=== PATIENT | female | born 1970 | race Caucasian/White ===

== ENCOUNTER 2018-10-15 17:56 | Emergency (ER) | payer OTHER ==
[~2018-10-15] VITALS: Ht 157.5 cm; Wt 58.3 kg
[~2018-10-15 17:56] MED LIST: ACET325T14 PO; ASPI-496 PO; BENZ-17 PO; CHOL400C PO; LEVO750T26 PO; OSEL75CA26 PO; PARO12.518 PO; [UNRECOGNIZED DRUG - CODE] PO
[2018-10-15 20:05] LABS: BASOPHILS # (AUTO) 0.02 x10^3/uL (0-0.1); BASOPHILS % (AUTO) 0 % (0-1); EOSINOPHILS # (AUTO) 0.37 x10^3/uL (0-0.4); EOSINOPHILS % (AUTO) 4 % (1-7); LYMPHOCYTES # (AUTO) 3.47 x10^3/uL (1-3.4); LYMPHOCYTES % (AUTO) 37 % (22-44); MD NO; MEAN CORPUSCULAR HEMOGLOBIN 30.2 pg (27.0-34.8); MEAN CORPUSCULAR VOLUME 91.4 fL (80-100); MEAN PLATELET VOLUME 9.8 fL (7.4-10.4); MONOCYTES # (AUTO) 0.92 x10^3/uL (0.2-0.8); MONOCYTES % (AUTO) 10 % (2-9); NEUTROPHILS # (AUTO) 4.66 x10^3/uL (1.8-6.8); NEUTROPHILS % (AUTO) 49 % (42-75); PLATELET COUNT 231 x10^3/uL (130-400); RED BLOOD COUNT 4.52 x10^6/uL (3.82-5.3); RED CELL DISTRIBUTION WIDTH 13.7 % (9.6-15.2)
[2018-10-15 20:13] LABS: ALANINE AMINOTRANSFERASE 26 U/L (12-78); ANION GAP 5 mmol/L (5-15); CALCIUM 8.7 mg/dL (8.5-10.1); CHLORIDE 110 mmol/L (98-107); CREATININE 0.44 mg/dL (0.55-1.02)
[2018-10-15 20:16] LABS: ALKALINE PHOSPHATASE 143 U/L (45-117); BILIRUBIN,TOTAL 0.7 mg/dL (0.2-1.0); TOTAL PROTEIN 7.1 g/dL (6.4-8.2)
[2018-10-15] MEDS ORDERED: MORPHINE SULFATE 4 MG/ML, 1ML IVPush PRN (20:30)
[2018-10-15] MEDS ORDERED: ONDANSETRON 2MG/ML, 2ML IVPush ONE (20:30)
[2018-10-15] MEDS ORDERED: ONDANSETRON 2MG/ML, 2ML ONE (20:38)
[2018-10-15] MEDS ORDERED: MORPHINE SULFATE 4 MG/ML, 1ML ONE (20:38)
[2018-10-15 20:42] LABS: HCG UR SG 1.018 (1.003-1.030); MICROSCOPIC NOT IND
[2018-10-15 20:45] LABS: CULTURE INDICATED? NO
--- NOTE | 2018-10-15 20:45 | NUR ---
Pt resting on gurney, PIV placed by tech, c/o 6/10 left upper quad abd pain w/ n/v x 2-3 days. Medicated per MD orders, placed on monitor, vitals stable, education provided to both pt and family at bedside. Waiting for results.
--- NOTE | 2018-10-15 21:10 | NUR ---
Pain improved, pt resting on gurney, denies nausea, vitals stable, family at bedside.
--- NOTE | 2018-10-15 21:40 | NUR ---
Pt in CT.
[2018-10-15] MEDS ORDERED: OMNIPAQUE 350 MG/ML, 100ML BOTTLE ONE (21:46)
[2018-10-15 22:33] VITALS: BP 114/51
--- NOTE | 2018-10-15 22:34 | NUR ---
Pt watching tv, vitals stable, states "no pain", denies nausea. Waiting for US. Family at bedside.
== END 2018-10-16 00:18 | disposition home or self-care (01) ==
LOC: ED 23:27
DX: N83.202 Unspecified ovarian cyst, left side (principal); I10 Essential (primary) hypertension; Z90.710 Acquired absence of both cervix and uterus
CPT/HCPCS: 36415; 74177; 76830; 80053; 81003; 81025; 83690; 85025; 96374; 96375; 99284; J2270; J2405; Q9967

== ENCOUNTER 2018-10-21 20:45 | Emergency (ER) | payer OTHER ==
[~2018-10-21] VITALS: Ht 157.5 cm; Wt 57.9 kg
[2018-10-21 22:37] VITALS: BP 121/61
== END 2018-10-21 22:39 | disposition home or self-care (01) ==
LOC: ED 22:28
DX: M54.42 Lumbago with sciatica, left side (principal); M46.1 Sacroiliitis, not elsewhere classified; I10 Essential (primary) hypertension; Z90.710 Acquired absence of both cervix and uterus; X50.1XXA Overexertion from prolonged static or awkward postures, initial encounter; Y93.89 Activity, other specified; Y92.89 Other specified places as the place of occurrence of the external cause; Y99.8 Other external cause status
CPT/HCPCS: 72110; 73502; 76830; 99284; J7512; Q0162

== ENCOUNTER 2018-12-05 07:34 | Emergency (ER) | payer OTHER ==
[~2018-12-05] VITALS: Ht 157.5 cm; Wt 58.9 kg
[2018-12-05] MEDS ORDERED: ONDANSETRON ODT 4 MG ONE (08:13)
[2018-12-05] MEDS ORDERED: KETOROLAC 30 MG/1 ML ONE (08:13)
--- NOTE | 2018-12-05 08:22 | NUR ---
PT TO ED WITH COUGH/COLD/CP X2D. PT MEDICATED PER MAY. UA ORDERED BUT PT UNABLE TO URINATE AT THIS TIME. PA NOTIFIED. CALL LIGHT WITHIN REACH.
[2018-12-05] MEDS ORDERED: KETOROLAC 30 MG/1 ML IM ONE (08:30)
[2018-12-05] MEDS ORDERED: ONDANSETRON ODT 4 MG PO ONE (08:30)
[2018-12-05 08:42] LABS: RAPID INFLUENZA A Negative (Negative); RAPID INFLUENZA B Negative (Negative)
[2018-12-05 09:16] VITALS: BP 148/63
[2018-12-05 09:21] LABS: MICROSCOPIC INDICATED
[2018-12-05 09:35] LABS: CULTURE INDICATED? YES
== END 2018-12-05 10:08 | disposition home or self-care (01) ==
LOC: ED 08:01
DX: J06.9 Acute upper respiratory infection, unspecified (principal); R50.81 Fever presenting with conditions classified elsewhere
CPT/HCPCS: 71048; 81001; 87086; 87400; 93005; 96372; 99284; J1885; Q0162; 99283

== ENCOUNTER 2019-02-27 08:33 | Emergency (ER) | payer OTHER ==
[~2019-02-27] VITALS: Ht 157.5 cm; Wt 58.9 kg
[2019-02-27] MEDS ORDERED: KETOROLAC 30 MG/1 ML IVPush ONE (09:00)
[2019-02-27] MEDS ORDERED: METOCLOPRAMIDE 5 MG/ML, 2ML IVPush ONE (09:00)
[2019-02-27] MEDS ORDERED: DIPHENHYDRAMINE 50 MG/ML, 1ML IVPush ONE (09:00)
[2019-02-27] MEDS ORDERED: SODIUM CHLORIDE FLUSH 10ML SYR IVF ONE (09:00)
[2019-02-27] MEDS ORDERED: SODIUM CHLORIDE 0.9% 1,000ML IVBOLUS ONE (09:00)
[2019-02-27] MEDS ORDERED: DIPHENHYDRAMINE 50 MG/ML, 1ML ONE (09:10)
[2019-02-27] MEDS ORDERED: METOCLOPRAMIDE 5 MG/ML, 2ML ONE (09:10)
[2019-02-27] MEDS ORDERED: KETOROLAC 30 MG/1 ML ONE (09:11)
[2019-02-27 09:37] LABS: BASOPHILS # (AUTO) 0.03 x10^3/uL (0-0.1); BASOPHILS % (AUTO) 0 % (0-1); EOSINOPHILS # (AUTO) 0.19 x10^3/uL (0-0.4); EOSINOPHILS % (AUTO) 3 % (1-7); LYMPHOCYTES # (AUTO) 3.39 x10^3/uL (1-3.4); LYMPHOCYTES % (AUTO) 43 % (22-44); MD NO; MEAN CORPUSCULAR HEMOGLOBIN 30.5 pg (27.0-34.8); MEAN CORPUSCULAR HGB CONC 33.5 g/dL (32.4-35.8); MEAN CORPUSCULAR VOLUME 91.1 fL (80-100); MEAN PLATELET VOLUME 9.5 fL (7.4-10.4); MONOCYTES # (AUTO) 0.69 x10^3/uL (0.2-0.8); MONOCYTES % (AUTO) 9 % (2-9); NEUTROPHILS # (AUTO) 3.52 x10^3/uL (1.8-6.8); NEUTROPHILS % (AUTO) 45 % (42-75); PLATELET COUNT 235 x10^3/uL (130-400); RED CELL DISTRIBUTION WIDTH 13.4 % (9.6-15.2)
[2019-02-27 09:42] LABS: HCT (SEDRATE) 46.5 % (34.6-47.8)
[2019-02-27 09:44] VITALS: BP 126/69
--- NOTE | 2019-02-27 09:45 | NUR ---
BREAK RN NOTE: PT A&O, RESPS EVEN AND UNLABORED, NO N/V AT THIS TIME. PT REPORTS SX IMPROVED. NS BOLUS INFUSING. CALL LIGHT IN REACH, FAMILY AT BEDSIDE. AWAITING LABWORK AND DISPO AT THIS TIME.
[2019-02-27 09:48] LABS: ALANINE AMINOTRANSFERASE 55 U/L (12-78); ALBUMIN 3.3 g/dL (3.4-5.0); ANION GAP 9 mmol/L (5-15); C-REACTIVE PROTEIN, QUANT 0.61 mg/dL (0.02-0.49); CALCIUM 8.8 mg/dL (8.5-10.1); CHLORIDE 109 mmol/L (98-107); CREATININE 0.53 mg/dL (0.55-1.02)
[2019-02-27 09:50] LABS: ALKALINE PHOSPHATASE 185 U/L (45-117); BILIRUBIN,TOTAL 0.9 mg/dL (0.2-1.0); TOTAL PROTEIN 8.2 g/dL (6.4-8.2)
--- NOTE | 2019-02-27 09:50 | NUR ---
report given back to primary EMMETT Kemp.
== END 2019-02-27 10:53 | disposition home or self-care (01) ==
LOC: ED 08:57
DX: G43.909 Migraine, unspecified, not intractable, without status migrainosus (principal); R11.2 Nausea with vomiting, unspecified; I10 Essential (primary) hypertension; Z90.710 Acquired absence of both cervix and uterus
CPT/HCPCS: 36415; 80053; 85025; 85651; 86140; 93005; 96361; 96374; 96375; 99284; J1200; J1885; J2765; J7030

== ENCOUNTER 2019-05-30 00:24 | Emergency (ER) | payer OTHER ==
[~2019-05-30] VITALS: Ht 152.4 cm; Wt 60.0 kg
[2019-05-30 00:29] VITALS: BP 145/95
--- NOTE | 2019-05-30 02:26 | NUR ---
pt to room from lobby
[2019-05-30] MEDS ORDERED: KETOROLAC 60 MG/2 ML ONE (02:38)
[2019-05-30] MEDS ORDERED: OXYcodone/APAP 5/325MG TABLET ONE (02:39)
[2019-05-30] MEDS ORDERED: KETOROLAC 30 MG/1 ML IM ONE (03:00)
[2019-05-30] MEDS ORDERED: OXYcodone/APAP 5/325MG TABLET PO ONE (03:00)
== END 2019-05-30 04:08 | disposition home or self-care (01) ==
LOC: ED 04:00
DX: S83.511A Sprain of anterior cruciate ligament of right knee, initial encounter (principal); S93.491A Sprain of other ligament of right ankle, initial encounter; I10 Essential (primary) hypertension; Z90.710 Acquired absence of both cervix and uterus; X50.1XXA Overexertion from prolonged static or awkward postures, initial encounter; Y93.89 Activity, other specified; Y92.89 Other specified places as the place of occurrence of the external cause; Y99.8 Other external cause status
CPT/HCPCS: 29505; 73564; 73610; 96372; 99284; J1885

== ENCOUNTER 2019-06-18 10:27 | Emergency (ER) | payer OTHER ==
[~2019-06-18] VITALS: Ht 154.9 cm; Wt 65.0 kg
--- NOTE | 2019-06-18 10:52 | NUR ---
PT TO ED WITH C/O L SIDED ABDOMINAL AND FLANK PAIN WITH OCAASIONAL NAUSEA X2 DAYS, SORE THROAT AND COUGH X3 DAYS, ANGUIANO X6 DAYS. PT DENIES ANY OTHER C/O AT THIS TIME. PT CONNECTED TO MONITORING, CALL LIGHT WITHIN REACH. MASK ON PT.
[2019-06-18] MEDS ORDERED: KETOROLAC 30 MG/1 ML ONE (11:18)
[2019-06-18] MEDS ORDERED: SODIUM CHLORIDE FLUSH 10ML SYR IVF ONE (11:30)
[2019-06-18] MEDS ORDERED: KETOROLAC 30 MG/1 ML IVPush ONE (11:30)
[2019-06-18] MEDS ORDERED: SODIUM CHLORIDE 0.9% 1,000ML IV ONE (11:30)
[2019-06-18 11:33] LABS: MICROSCOPIC NOT IND
[2019-06-18 11:36] LABS: CULTURE INDICATED? NO
[2019-06-18] MEDS ORDERED: METH5TAB6 PO (11:37)
[2019-06-18] MEDS ORDERED: LOSA25TA12 PO (11:37)
[2019-06-18] MEDS ORDERED: METH10TA6 PO (11:37)
[2019-06-18 11:41] LABS: BASOPHILS # (AUTO) 0.04 x10^3/uL (0-0.1); BASOPHILS % (AUTO) 0 % (0-1); EOSINOPHILS # (AUTO) 0.28 x10^3/uL (0-0.4); EOSINOPHILS % (AUTO) 3 % (1-7); LYMPHOCYTES # (AUTO) 2.95 x10^3/uL (1-3.4); LYMPHOCYTES % (AUTO) 29 % (22-44); MD NO; MEAN CORPUSCULAR HEMOGLOBIN 30.8 pg (27.0-34.8); MEAN CORPUSCULAR HGB CONC 33.8 g/dL (32.4-35.8); MEAN CORPUSCULAR VOLUME 91.1 fL (80-100); MEAN PLATELET VOLUME 8.9 fL (7.4-10.4); MONOCYTES # (AUTO) 0.73 x10^3/uL (0.2-0.8); MONOCYTES % (AUTO) 7 % (2-9); NEUTROPHILS # (AUTO) 6.07 x10^3/uL (1.8-6.8); NEUTROPHILS % (AUTO) 60 % (42-75); PLATELET COUNT 296 x10^3/uL (130-400); RED BLOOD COUNT 4.87 x10^6/uL (3.82-5.3); RED CELL DISTRIBUTION WIDTH 14.1 % (9.6-15.2)
[2019-06-18 11:48] LABS: ALBUMIN 3.1 g/dL (3.4-5.0); ANION GAP 6 mmol/L (5-15); CALCIUM 8.4 mg/dL (8.5-10.1); CHLORIDE 111 mmol/L (98-107); CREATININE 0.57 mg/dL (0.55-1.02)
--- NOTE | 2019-06-18 12:07 | NUR ---
REPORT FROM RAYMOND CHRISTINE. INTRODUCED SELF TO PATIENT SHE WAS BEING TRANSPORTED TO CT. IV FLUIDS ARE FINISHED, CLAMPED AND REMOVED FROM PATIENT. PT WEARING MASK AND INSTRUCTED TO KEEP IT ON AT ALL TIMES.
--- NOTE | 2019-06-18 12:20 | NUR ---
PT DENIES PAIN, STATES "THE MEDICINE WORKED, MY PAIN IS GONE". VITALS AND ASSESSMENT PERFORMED BY THIS RN. WILL CONTINUE TO MONITOR. PT REMAINS IN DROPLET PRECAUTIONS, AND MASK IS ON. PT VERBALIZES UNDERSTANDING OF NEEDING TO WEAR MASK AT ALL TIMES.
--- NOTE | 2019-06-18 12:42 | NUR ---
PT UP TO BSC WITH STRONG STEADY GAIT.
[2019-06-18 13:19] VITALS: BP 127/78
--- NOTE | 2019-06-18 13:22 | NUR ---
Patient/Caregiver given discharge instructions and they have confirmed that they understand the instructions. Patient ambulatory with steady gait.
== END 2019-06-18 13:24 | disposition home or self-care (01) ==
LOC: ED 11:13
DX: R05 Cough (principal); R10.9 Unspecified abdominal pain
CPT/HCPCS: 36415; 71045; 74176; 80048; 81003; 82040; 85025; 96374; 99285; J1885; J7030